=== PATIENT | female | born 1965 | race Two or more races ===

== ENCOUNTER 2016-05-01 21:06 | Emergency (ER) | payer OTHER ==
[2016-05-01] MEDS ORDERED: IOPAMIDOL 300 (61%) 150 ML VIAL IV ONE (21:07)
[2016-05-01 22:22] LABS: ABSOLUTE NEUTROPHIL COUNT 3.2 K/mm3 (1.8-7.7); BASO % 0.5 % (0.2-1.0); EOS # 0.1 (0.0-0.5); EOS % 1.9 % (0.9-2.9); HEMATOCRIT 36.4 % (37.0-47.0); HEMOGLOBIN 12.5 gm/l (12.0-16.0); IMM NEUT% 0.5 % (0-1); LYMPH % 35.6 % (15-45); MEAN CELL VOLUME 86.3 fl (81.0-99.0); MEAN CORPUSCULAR HEMOGLOBIN 29.6 pg (27.0-31.0); MEAN CORPUSCULAR HGB CONC 34.3 g/dl (33.0-37.0); MEAN PLATELET VOLUME 9.3 fl (7.4-10.4); MONO # 0.3 (0.0-0.8); MONO % 4.9 % (4-12); NEUT % 56.6 % (43-75); PLATELET COUNT 203 K/mm3 (130-400); RED CELL DISTRIBUTION WIDTH 12.9 % (11.5-14.5)
[2016-05-01] MEDS ORDERED: SODIUM CHLORIDE 0.9% 1,000 ML ONE (22:31)
[2016-05-01 22:34] LABS: ALB/GLOB RATIO 1.4 (>1.0); CALCIUM 9.4 mg/dL (8.6-10.3); MAGNESIUM 2.1 mg/dL (1.9-2.7)
[2016-05-01 22:35] LABS: PH,URINE 6.5 (5.0-8.0); SPECIFIC GRAVITY 1.015 (1.001-1.030); URINE BILIRUBIN NEGATIVE (NEGATIVE); URINE BLOOD 3+ (NEGATIVE); URINE GLUCOSE (UA) NEGATIVE (NEGATIVE); URINE LEUKOCYTE ESTERASE TRACE (NEGATIVE); URINE NITRITE NEGATIVE (NEGATIVE); URINE PROTEIN NEGATIVE (NEGATIVE); URINE UROBILINOGEN NORMAL (0-1 mg/dl)
[2016-05-01] MEDS ORDERED: LACTULOSE 20 G/30 ML UDCUP ONE (22:39)
[2016-05-01 22:41] LABS: URINE APPEARANCE CLEAR; URINE COLOR YELLOW
[2016-05-01 22:47] LABS: URINE BACTERIA RARE; URINE EPITHELIAL CELLS 0-2 /hpf; URINE RBC 0-2 /hpf
[2016-05-02] MEDS ORDERED: ENEMA--adult 1 EACH ONE (00:15)
[2016-05-02] MEDS ORDERED: ELECTROLYTES ONE (00:20)
[2016-05-02] MEDS ORDERED: [UNRECOGNIZED DRUG - OTHER] ONE (00:20)
[2016-05-02] MEDS ORDERED: PEG ONE (00:20)
--- NOTE | 2016-05-02 08:23 | CT ---
CT ABDOMEN AND PELVIS WITH CONTRAST HISTORY: Abdominal pain x6 weeks, constipation. TECHNIQUE: Following intravenous administration of 1 25 mL Isovue-300, contiguous axial images were acquired from the lung bases to the ischial tuberosities. Oral contrast was not administered. COMPARISON:None. FINDINGS: LUNG BASES: No gross airspace consolidation or pleural effusion. CHEST SOFT TISSUES: Postsurgical change on the right. LIVER: No focal lesion. SPLEEN: No focal lesion. PANCREAS: No focal lesion. ADRENAL GLANDS: No mass effect. KIDNEYS: No focal lesion. No collecting system dilatation. GALLBLADDER: Contracted. Moderate prominence of the common bile duct proximally, up to 10 mm in size. BOWEL: Moderate fecal loading. Limited assessment of the distal colon due to decompression. No abnormal small bowel dilatation. Findings of colonic diverticulosis without features of diverticulitis. Moderate proximal fecal load of the colon is noted with fecaloid content within the terminal ileum. There is nonspecific wall enhancement of multiple small bowel loops. Anterior abdominal wall evidence of prior transverse incision. APPENDIX: Grossly unremarkable. PELVIC ORGANS: No gross mass effect. FREE FLUID: No gross free fluid identified. ABDOMINOPELVIC LYMPH NODES: No abnormally enlarged lymph nodes identified. ABDOMINAL AORTA: Normal caliber. OSSEOUS STRUCTURES: No grossly destructive lesions. Remodeling suggesting sacral perineural cyst formation. IMPRESSION: 1. Nonobstructive, noninflammatory appearance of bowel. Normal appendix. 2. Fecaloid content within small bowel with moderate colonic fecal load. Nonspecific small bowel wall enhancement may indicate enteritis. 3. No free fluid or adnexal mass effect. 4. Moderate prominence of proximal common bile duct, up to 10 mm in size. 5. Postsurgical change of the chest and anterior abdominal wall. Preliminary report relayed to the Emergency Medicine medical service by Dr. Caldwell on 05/02/2016 at 0001 hours.
== END 2016-05-02 00:49 | disposition home or self-care (01) ==
LOC: ED 21:06
DX: K59.00 Constipation, unspecified (principal); R10.9 Unspecified abdominal pain; Z85.3 Personal history of malignant neoplasm of breast; Z90.10 Acquired absence of unspecified breast and nipple
CPT/HCPCS: 83690; 84703; 85025; 87086; 80053; 87186; 83735; 81001; 87077; 74177; 99284 ×2; A9270 ×2; J7030; Q9967

== ENCOUNTER 2016-05-16 11:18 | Emergency (ER) | payer OTHER ==
[2016-05-16] MEDS ORDERED: IOPAMIDOL 370 (76%) IV.SOLN 150 ML IV ONE (11:19)
[2016-05-16 12:39] LABS: URINE BILIRUBIN NEGATIVE (NEGATIVE); URINE BLOOD 4+ (NEGATIVE); URINE GLUCOSE (UA) NEGATIVE (NEGATIVE); URINE LEUKOCYTE ESTERASE TRACE (NEGATIVE); URINE NITRITE NEGATIVE (NEGATIVE); URINE PROTEIN NEGATIVE (NEGATIVE); URINE UROBILINOGEN NORMAL (0-1 mg/dl)
[2016-05-16 12:40] LABS: URINE APPEARANCE CLEAR; URINE COLOR YELLOW
[2016-05-16 12:43] LABS: URINE BACTERIA 1+
[2016-05-16] MEDS ORDERED: ONDANSETRON 4 MG ODT TAB ONE (12:45)
[2016-05-16] MEDS ORDERED: LACTATED RINGERS 1,000 ML ONE (12:45)
[2016-05-16 12:56] LABS: ABSOLUTE NEUTROPHIL COUNT 1.1 K/mm3 (1.8-7.7); BASO % 0.4 % (0.2-1.0); EOS # 0.1 (0.0-0.5); EOS % 2.2 % (0.9-2.9); HEMATOCRIT 35.9 % (37.0-47.0); HEMOGLOBIN 12.2 gm/l (12.0-16.0); LYMPH # 1.3 (1.0-4.8); LYMPH % 48.1 % (15-45); MEAN CELL VOLUME 87.6 fl (81.0-99.0); MEAN CORPUSCULAR HEMOGLOBIN 29.8 pg (27.0-31.0); MEAN PLATELET VOLUME 9.2 fl (7.4-10.4); MONO # 0.2 (0.0-0.8); MONO % 7.8 % (4-12); NEUT % 41.5 % (43-75); PLATELET COUNT 135 K/mm3 (130-400); RED CELL DISTRIBUTION WIDTH 13.3 % (11.5-14.5)
[2016-05-16 13:01] LABS: I-STAT CREATININE 0.6 mg/dL (0.6-1.3)
--- NOTE | 2016-05-16 13:40 | CT ---
ABD/PELVIS W/ CON COMPARISON: CT abdomen and pelvis, 05/01/2016 HISTORY: 50-year-old female, with nausea, vomiting, and constipation. Had tummy tuck January 2016 for breast reconstruction. Technique: No oral contrast. Intravenous injection 100 mL Isovue 370. Using a [employer] [address] scanner, images were obtained from the diaphragm to the floor the pelvis. An automated dose reduction technique was used to minimize patient radiation dose. Dose information: CTDIvol (mGy): 8.10 DLP(mGycm): 352.10 FINDINGS: Lung bases: Normal. Inferior mediastinum and heart: Normal. Liver: Normal. Gallbladder:Normal. Bile ducts: Normal. Pancreas: Normal. Spleen: Normal. Adrenal glands: Normal. Kidneys: Normal. Ureters: Normal Urinary bladder: Normal. Uterus and adnexa: Normal. Blood vessels: Normal Lymph nodes: Normal Stomach: Normal Duodenum: Normal Small intestine: Normal Appendix: Normal Colon: The colon is not distended. Abdominal wall and supporting musculature: Transverse surgical incision in the lower ventral abdomen. Bones: Normal IMPRESSION: 1. No acute process. No CT evidence of constipation, diverticulitis, appendicitis, or bowel obstruction. 2. Satisfactory appearance of transverse lower ventral abdominal wall surgical incision. The report was sent to the emergency department electronic medical record system, 05/16/2016 at 13:42
[2016-05-17 17:42] LABS: ALB/GLOB RATIO 1.3 (>1.0); ALBUMIN 3.9 gm/dL (3.5-5.7); CALCIUM 9.2 mg/dL (8.6-10.3)
== END 2016-05-16 14:39 | disposition home or self-care (01) ==
LOC: ED 11:18
DX: K59.00 Constipation, unspecified (principal)
CPT/HCPCS: 83690; 85025; 80053; 81001; 74177; 99284 ×2; J7120; A9270; Q9967